=== PATIENT | female | born 1980 ===

== ENCOUNTER 2018-01-02 11:57 | Emergency (ER) | payer MEDICAID ==
[2018-01-02 12:22] VITALS: BP 112/77; PULSE 73; RESP 14; TEMP 98.2; O2SAT 99
--- NOTE | 2018-01-02 13:35 | C.PDOC ---
History Of Present Illness 37 y/o female presents to ED with complaints of right shoulder pain radiating to right lower back for 1 week and headache since yesterday. Patient describes pain as "pinching" and reports occasional numbness to right arm. Patient denies vision changes, urinary symptoms, nausea, vomiting, direct injury or any other complaints at this time. Chief Complaint (Nursing): Upper Extremity Problem/Injury History Per: Patient History/Exam Limitations: no limitations Onset/Duration Of Symptoms: Days Current Symptoms Are (Timing): Still Present Quality: Other (Pinching pain) Past Medical History Reviewed: Historical Data, Nursing Documentation, Vital Signs Vital Signs: Last Vital Signs Temp 98.2 F 01/02/18 12:16 Pulse 73 01/02/18 12:16 Resp 14 01/02/18 12:16 BP 112/77 01/02/18 12:16 Pulse Ox 99 01/02/18 13:46 - Medical History PMH: No Chronic Diseases Surgical History: No Surg Hx Family History: States: No Known Family Hx - Social History Hx Alcohol Use: No Hx Substance Use: No - Immunization History Hx Tetanus Toxoid Vaccination: No Hx Influenza Vaccination: Yes Hx Pneumococcal Vaccination: No Review Of Systems Gastrointestinal: Negative for: Nausea, Vomiting Genitourinary: Negative for: Dysuria, Incontinence Musculoskeletal: Positive for: Shoulder Pain, Arm Pain, Back Pain Skin: Negative for: Rash Neurological: Positive for: Numbness, Headache. Negative for: Weakness, Dizziness Physical Exam - Physical Exam Appears: Non-toxic, No Acute Distress Skin: Warm, Dry, No Rash Head: Atraumatic, Normacephalic Oral Mucosa: Moist Neck: Paracervical Tenderness, Other (Trapezius muscle reproducible pain ) Back: Muscle Spasm Extremity: Capillary Refill (<2 seconds), No Deformity, Other (paresthesia of right hand) Pulses: Left Radial: Normal, Right Radial: Normal Neurological/Psych: Oriented x3, Normal Motor, Normal Sensation ED Course And Treatment O2 Sat by Pulse Oximetry: 99 (RA) Pulse Ox Interpretation: Normal Medical Decision Making Medical Decision Making: Impression: Cervical radiculopathy Plan: Muscle relaxant and Anti inflammatory medication Progress: Patient requesting work note Disposition - Disposition Referrals: [facility] [Outside] Disposition: HOME/ ROUTINE Disposition Time: 13:44 Condition: FAIR Prescriptions: Cyclobenzaprine [Cyclobenzaprine HCl] 10 mg PO TID #15 tab Naproxen [Naprosyn] 500 mg PO BID #20 tablet Instructions: Cervical Radiculopathy (ED) Forms: [facility] ([place]orese), Work Excuse Print Language: NEPALI - Clinical Impression Clinical Impression: Cervical radiculopathy - Scribe Statement The provider has reviewed the documentation as recorded by the Isaacibsayda Paul All medical record entries made by the Isaacibsayda were at my direction and personally dictated by me. I have reviewed the chart and agree that the record accurately reflects my personal performance of the history, physical exam, medical decision making, and the department course for this patient. I have also personally directed, reviewed, and agree with the discharge instructions and disposition.
== END 2018-01-02 13:50 | disposition home or self-care (01) ==
LOC: C.ER 11:57
DX: M54.12 Radiculopathy, cervical region (principal)

== ENCOUNTER 2018-02-21 15:13 | Emergency (ER) | payer MEDICAID ==
[2018-02-21 15:41] VITALS: RESP 20; TEMP 97.8; O2SAT 100
[2018-02-21 16:36] LABS: SQUAMOUS EPITHIAL 7 /hpf (0-5); URINE AMORPHOUS SEDIMENT OCC /ul (<OCC); URINE BILIRUBIN NEGATIVE (NEGATIVE); URINE BLOOD NEGATIVE (NEGATIVE); URINE CLARITY Hazy (Clear); URINE COLOR Yellow (YELLOW); URINE GLUCOSE (UA) NORMAL (Normal); URINE LEUKOCYTE ESTERASE NEG Leu/uL (Negative); URINE PROTEIN NEGATIVE (NEGATIVE); URINE UROBILINOGEN NORMAL mg/dL (0.2-1.0)
[2018-02-21 16:51] LABS: HCG,QUALITATIVE URINE NEGATIVE (NEGATIVE)
[2018-02-21] MEDS ORDERED: Lidocaine 5% Patch TD STA (17:08)
[2018-02-21] MEDS ORDERED: Lidocaine 5% Patch TD ONE (17:36)
--- NOTE | 2018-02-21 17:39 | C.PDOC ---
History Of Present Illness 37 y/o female presents complaining of pain in the right lower back radiating to her right buttock and leg for 3 days. States it has become painful to bear weight on the right. Patient has had similar symptoms in the past, but never this severe. Denies any injury or fall. At work she is mostly standing throughout the day, denies heavy lifting. Time Seen by Provider: 02/21/18 16:31 Chief Complaint (Nursing): Back Pain History Per: Patient History/Exam Limitations: no limitations Onset/Duration Of Symptoms: Days (x3) Current Symptoms Are (Timing): Still Present Past Medical History Reviewed: Historical Data, Nursing Documentation, Vital Signs Vital Signs: Last Vital Signs Temp 97.8 F 02/21/18 18:40 Pulse 70 02/21/18 18:40 Resp 20 02/21/18 18:40 BP 116/68 02/21/18 18:40 Pulse Ox 100 02/21/18 18:40 - Medical History PMH: Diabetes Other PMH: Lupus Other Surgeries: Tubal ligation Family History: States: Unknown Family Hx - Social History Hx Tobacco Use: No Hx Alcohol Use: No Hx Substance Use: No - Immunization History Hx Tetanus Toxoid Vaccination: No Hx Influenza Vaccination: Yes (2017) Hx Pneumococcal Vaccination: No Review Of Systems Except As Marked, All Systems Reviewed And Found Negative. Constitutional: Negative for: Fever, Chills Genitourinary: Negative for: Dysuria, Incontinence, Hematuria Musculoskeletal: Positive for: Back Pain, Leg Pain Neurological: Negative for: Weakness, Numbness (and tingling) Physical Exam - Physical Exam Appears: Non-toxic, No Acute Distress Skin: Normal Color, Warm, Dry Head: Atraumatic, Normacephalic Eye(s): bilateral: Normal Inspection, PERRL, EOMI Nose: Normal Oral Mucosa: Moist Neck: Normal ROM, Supple Chest: Symmetrical Cardiovascular: Rhythm Regular, No Murmur Respiratory: Normal Breath Sounds, No Accessory Muscle Use Gastrointestinal/Abdominal: Soft, No Tenderness, No Distention Back: No Vertebral Tenderness, Paraspinal Tenderness (to right paralumbar region ), Straight Leg Raising (Right: + straight leg raise at 60 degrees) Extremity: Tenderness (to the right posterior thigh and buttock), No Deformity, No Swelling Neurological/Psych: Oriented x3, Normal Speech, Normal Motor, Normal Sensation ED Course And Treatment O2 Sat by Pulse Oximetry: 100 (RA) Pulse Ox Interpretation: Normal - Other Rad x-ray LS spine X-Ray: Viewed By Me, Read By Radiologist Interpretation: FINDINGS: BONES: Normal alignment. No listhesis. No fracture. DISC SPACES: Unremarkable. OTHER FINDINGS: None. IMPRESSION: Unremarkable radiographs of the lumbar spine. Progress Note: Ordered x-ray of lumbar spine. Urine is unremarkable. Patient given Toradol IM and Lidoderm patch applied. Pt counseled regarding diagnosis and normal imaging. On reevaluation, pt reports improvement in back pain. Stable for d/c home. Reevaluation Time: 18:10 Reassessment Condition: Improved Disposition - Disposition Referrals: Shaik Robledo MD [Staff Provider] - Disposition: HOME/ ROUTINE Disposition Time: 18:19 Condition: STABLE Additional Instructions: Follow up with PMD within 1-2 days. Return to ED if feel worse. Prescriptions: Lidocaine 5% [Lidoderm] 1 patch TP DAILY #30 patch oxyCODONE/Acetaminophen [Percocet 5/325 mg Tab] 1 tab PO QID PRN #20 tab PRN Reason: Pain Ketorolac Tromethamine [Toradol] 10 mg PO TID #30 tab diaZEpam [Valium] 2 mg PO TID #15 tab Instructions: Sciatica Forms: [facility] (Kazakh), Work Excuse Print Language: HUNGARIAN - Clinical Impression Clinical Impression: Sciatica - PA / ZIGZAG APPLIQUER / Resident Statement MD/DO has reviewed & agrees with the documentation as recorded. - Scribe Statement The provider has reviewed the documentation as recorded by the Scribe (Asha Lawson) All medical record entries made by the Scribe were at my direction and personally dictated by me. I have reviewed the chart and agree that the record accurately reflects my personal performance of the history, physical exam, medical decision making, and the department course for this patient. I have also personally directed, reviewed, and agree with the discharge instructions and disposition.
--- NOTE | 2018-02-21 18:24 | RAD ---
PROCEDURE: Radiographs of the Lumbar Spine. HISTORY: low back pain, right sciatica COMPARISON: No prior. FINDINGS: BONES: Normal alignment. No listhesis. No fracture. DISC SPACES: Unremarkable. OTHER FINDINGS: None. IMPRESSION: Unremarkable radiographs of the lumbar spine.
[2018-02-21 18:41] VITALS: BP 116/68; PULSE 70
== END 2018-02-21 18:40 | disposition home or self-care (01) ==
LOC: C.ER 15:13
DX: M54.31 Sciatica, right side (principal)
CPT/HCPCS: 72100; 81001; 84703; 96372; 99283; J1885